=== PATIENT | female | born 1980 | race Caucasian/White ===

== ENCOUNTER 2022-12-10 11:19 | Emergency (ER) | payer OTHER, SELFPAY ==
[2022-12-10 11:28] VITALS: BP 166/100; PULSE 104; RESP 20; TEMP 36.6; O2SAT 98; BMI 47.6
--- NOTE | 2022-12-10 11:34 | ED.URI1 ---
HPI - URI/Sore Throat General Chief Complaint: Upper Respiratory Infection Stated Complaint: SORE THROAT Time Seen by Provider: 12/10/22 11:21 Source: patient Limitations: no limitations History of Present Illness HPI Narrative: 42-year-old female presents for sore throat. She's had it for two days. She's had very minimal cough. Hurts more when she swallows. She's been nauseous and had some vomiting as well. She is not complaining of chest pain and hasn't had a fever. Related Data Previous Rx's Medication Instructions Recorded ayvkhzueje-ibstbspylorzy-suvtgoly 1 cap PO Q6H PRN headache #20 caps 12/10/22 50 mg-300 mg-40 mg capsule (Fioricet) ondansetron HCl 4 mg tablet 4 mg PO Q6H PRN nausea #20 tabs 12/10/22 Allergies Allergy/AdvReac Type Severity Reaction Status Date / Time No Known Drug Allergies Allergy Verified 12/10/22 11:27 Review of Systems ROS Narrative A ten point review of systems is negative except as noted above. PFSH PFSH Social History Smoking status: Never smoker Exam Narrative Exam Narrative: Nurses note and vital signs reviewed and patient is not hypoxic. General: The patient appears well and in no apparent distress. Patient is resting comfortably on cart. Skin: Warm, dry, no pallor noted. There is no rash noted. Head: Normocephalic, atraumatic Eye: Normal conjunctiva, no drainage Ears, Nose, Mouth, and Throat: oral mucosa is moist. Nares patent. pharyngeal erythema present. No peritonsillar swelling or uvular deviation. One very small area of white exudate present on the left tonsil. Cardiovascular: Regular Rate and Rhythm Respiratory: Patient is in no distress, no accessory muscle use, lungs are clear to auscultation, no wheezing, rales or rhonchi Back: non-tender GI: soft and nontender Musculoskeletal: The patient has no evidence of calf tenderness, no pitting edema, symmetrical pulses noted bilaterally Neurological: A&O, normal speech Psychiatric: Cooperative Constitutional Vital Signs, click to edit/add: Last Vital Signs Temp 97.9 F 12/10/22 11:28 Pulse 104 H 12/10/22 11:28 Resp 20 12/10/22 11:28 BP 166/100 H 12/10/22 11:28 Pulse Ox 98 12/10/22 11:28 Course Vital Signs Vital signs: Vital Signs Temperature 97.9 F 12/10/22 11:28 Pulse Rate 104 H 12/10/22 11:28 Respiratory Rate 20 12/10/22 11:28 Blood Pressure 166/100 H 12/10/22 11:28 Pulse Oximetry 98 12/10/22 11:28 Temperature 97.9 F 12/10/22 11:28 Pulse Rate 104 H 12/10/22 11:28 Respiratory Rate 20 12/10/22 11:28 Blood Pressure 166/100 H 12/10/22 11:28 Pulse Oximetry 98 12/10/22 11:28 MDM - URI/Sore Throat MDM Narrative Medical decision making narrative: strep testing Covid test are both negative. Antibiotic is not indicated. Treatment diagnosis and follow-up were discussed with the patient. Differential Diagnosis Differential diagnosis: Likely viral infection, pharyngitis and other (Covid) Lab Data Attestation: I reviewed the patient's lab results. Labs: Lab Results 12/10/22 Range/Units 11:35 SARS-CoV-2 (PCR) Negative (NEGATIVE) Streptococcus Screen Negative Discharge Plan Discharge Chief Complaint: Upper Respiratory Infection Clinical Impression: Viral pharyngitis Patient Disposition: Home, Self-Care Time of Disposition Decision: 12:26 Condition: Good Mode of Transportation: Private Vehicle Prescriptions / Home Meds: New cqggoqliww-slcvorxcydqyv-yplr [Fioricet] 50-300-40 mg capsule 1 cap PO Q6H PRN (Reason: headache) Qty: 20 0RF ondansetron HCl 4 mg tablet 4 mg PO Q6H PRN (Reason: nausea) Qty: 20 0RF Instructions: Pharyngitis (ED) Stand Alone Forms: Portal Instructions Referrals: Sylvia Boykin [Primary Care Provider] - 1 week
[2022-12-10] MEDS: ONDANSETRON 4 MG RAPDIS TABLET SL (11:46)
[2022-12-10] MEDS: KETOROLAC TROMETHAMINE 60 MG/2 ML VIAL IM (11:46)
[2022-12-10 12:11] LABS: Internal Control Within Normal Limits; Strep A Antigen Screen Negative
[2022-12-10 12:17] LABS: SARS-CoV-2 Ag NEGATIVE (NEGATIVE)
[2022-12-10 12:40] VITALS: BP 153/95; PULSE 82; RESP 16; TEMP 36.6; O2SAT 98
[2022-12-12 16:03] LABS: SARS-CoV-2 NAA NOT DETECTED (NOT DETECTE)
== END 2022-12-10 12:48 | disposition home or self-care (01) ==
PROVIDERS: Emergency Provider Emergency Medicine; PCP Nurse Practitioner
DX: J02.9 Acute pharyngitis, unspecified (principal); Z20.822 Contact with and (suspected) exposure to COVID-19
CPT/HCPCS: 87070; 87635; 87811; 87880; 96372; 99284

== ENCOUNTER 2023-01-11 17:03 | Observation (INO) | payer OTHER, SELFPAY ==
[2023-01-11 17:07] VITALS: BP 150/108; PULSE 99; RESP 14; TEMP 36.8; O2SAT 97; BMI 47.6
--- NOTE | 2023-01-11 18:34 | PC.NURSE ---
pt presents to ED because pt states she has cellulitis pt states yesterday around noon she noticed redness to her right madden and the redness has no spread and is hot to touch. pt states she had this same thing in the same spot a year ago and had to be admitted for antibiotics. area measuring 15cm x 11cm. area marked.
--- NOTE | 2023-01-11 18:41 | ED.EXTPRO1 ---
Documented by User: STALIN Anthony 01/11/23 20:03 HPI - Extremity Problem General Chief complaint: Extremity Problem, Nontraumatic Stated complaint: LOWER EXTREMITY PAIN Time Seen by Provider: 01/11/23 17:41 Source: patient Mode of arrival: walk-in Limitations: no limitations History of Present Illness HPI Narrative: patient is a 42-year-old female who presents to the emergency department for red tender area to the right anterior madden that began last night. She has a history of cellulitis and has been admitted in the past for this. She reports subjective fever and an episode of vomiting prior to arrival. there has been no drainage from the leg. No injury or trauma. She is not concerned for . No medications taken today for pain or fever. Related Data Previous Rx's Medication Instructions Recorded wnkmbooocl-tasvufmsnlpju-gmdlebbj 1 cap PO Q6H PRN headache #20 caps 12/10/22 50 mg-300 mg-40 mg capsule (Fioricet) ondansetron HCl 4 mg tablet 4 mg PO Q6H PRN nausea #20 tabs 12/10/22 amoxicillin 875 mg-potassium 1 tab PO Q12H 14 days #28 tabs 01/12/23 clavulanate 125 mg tablet Allergies Allergy/AdvReac Type Severity Reaction Status Date / Time No Known Drug Allergies Allergy Verified 01/11/23 17:07 Review of Systems ROS Constitutional Denies: fever or chills Cardiovascular Denies: chest pain Respiratory Denies: shortness of breath or cough Gastrointestinal Reports: nausea and vomiting Integumentary/Breast Denies: rash Neurological Denies: headache Hematologic/Lymphatic Denies: easy bruising [facility] Medical History (Updated 01/16/23 @ 00:00 by ) Social History Smoking status: Never smoker Exam Narrative Exam Narrative: Gen.: Awake, alert, in no distress Head: Normocephalic, atraumatic ENT: Moist mucous membranes Respiratory: No respiratory distress Extremities: Moves extremities equally, right anterior tibia with erythematous tender rash consistent with cellulitis. No circumferential erythema, there is no redness or swelling over the right calf. No open wounds or drainage. No red streaking. Psych: Normal mood and affect Neuro: No focal neuro deficit Skin: Warm, dry, intact Constitutional Vital Signs, click to edit/add: Last Vital Signs Temp 97.5 F L 01/12/23 06:00 Pulse 72 01/12/23 08:00 Resp 16 01/12/23 08:00 BP 132/89 01/12/23 06:00 Pulse Ox 97 01/12/23 06:00 O2 Del Method Room Air 01/12/23 06:00 Course Vital Signs Vital signs: Vital Signs Temperature 98.2 F 01/11/23 17:07 Pulse Rate 99 H 01/11/23 17:07 Respiratory Rate 14 01/11/23 17:07 Blood Pressure 150/108 H 01/11/23 17:07 Pulse Oximetry 97 01/11/23 17:07 Oxygen Delivery Method Room Air 01/11/23 17:07 Temperature 97.5 F L 01/12/23 06:00 Pulse Rate 72 01/12/23 08:00 Respiratory Rate 16 01/12/23 08:00 Blood Pressure 132/89 01/12/23 06:00 Pulse Oximetry 97 01/12/23 06:00 Oxygen Delivery Method Room Air 01/12/23 06:00 MDM - Extremity (Nontraumatic) MDM Narrative Medical decision making narrative: patient treated with IV fluids, Toradol, Zofran, IV Ancef for antibiotic coverage. Lab studies show leukocytosis with no bandemia and normal lactic acid. Ultrasound was performed to rule out deep vein thrombosis. Patient is admitted for cellulitis of the right lower extremity. Vital signs are stable at time of admission to hospitalist, Dr. Domínguez for Dr. Varela (1999). Medical Records Attestation: I reviewed the patient's medical records. Lab Data Attestation: I reviewed the patient's lab results. Labs: Lab Results 01/11/23 Range/Units 18:40 WBC 17.2 H (4.0-11.0) 10^3/uL RBC 4.86 (4.20-5.40) 10^6/uL Hgb 14.0 (12.0-16.0) g/dL Hct 41.8 (36.0-48.0) % MCV 86.0 (81.0-99.0) fL MCH 28.8 (26.7-34.0) pg MCHC 33.5 (29.9-35.2) g/dL RDW 14.6 (11.0-15.0) % Plt Count 283 (150-450) 10^3/uL MPV 10.0 (9.5-13.5) fL Neut % (Auto) 86.4 H (43.0-75.0) % Lymph % (Auto) 7.1 L (20.5-60.0) % Jackson % (Auto) 5.0 (1.7-12.0) % Eos % (Auto) 0.1 L (0.9-7.0) % Baso % (Auto) 0.4 (0.2-2.0) % Neut # (Auto) 14.8 H (1.4-6.5) 10^3/uL Lymph # (Auto) 1.2 (1.2-3.8) 10^3/uL Jackson # (Auto) 0.9 H (0.3-0.8) 10^3/uL Eos # (Auto) 0.0 (0.0-0.7) 10^3/uL Baso # (Auto) 0.1 (0.0-0.1) 10^3/uL Abs Immat Gran (auto) 0.17 H (0.00-0.03) 10^3/uL Imm/Tot Granulo (auto) 1.0 H (0.0-0.5) % Sodium 138 (136-145) mmol/L Potassium 3.4 L (3.5-5.1) mmol/L Chloride 102 (98-107) mmol/L Carbon Dioxide 23.1 (21.0-32.0) mmol/L Anion Gap 16.3 BUN 11.0 (7.0-18.0) mg/dL Creatinine 0.66 (0.55-1.02) mg/dL Est GFR ( Amer) >60 (>=60) Est GFR (Non-Af Amer) >60 (>=60) BUN/Creatinine Ratio 16.7 Glucose 122 H (74-106) mg/dL Lactate 1.1 (0.4-2.0) mmol/L Calcium 9.2 (8.5-10.1) mg/dL Total Bilirubin 0.5 (0.2-1.0) mg/dL AST 27 (15-37) U/L ALT 41 (14-59) U/L Alkaline Phosphatase 91 (46-116) U/L Total Protein 8.1 (6.4-8.2) g/dL Albumin 3.8 (3.4-5.0) g/dL Globulin 4.3 g/dL Albumin/Globulin Ratio 0.9 Discharge Plan Discharge Chief Complaint: Extremity Problem, Nontraumatic Clinical Impression: Cellulitis, Leukocytosis Patient Disposition: Admitted as Observation Time of Disposition Decision: 20:02 Condition: Good Discharge Date/Time: 01/11/23 20:29 Documented by User: Mil Rowan MD 02/13/23 16:57 HPI - Extremity Problem General Chief complaint: Extremity Problem, Nontraumatic Stated complaint: LOWER EXTREMITY PAIN Time Seen by Provider: 01/11/23 17:41 Related Data Previous Rx's Medication Instructions Recorded puomxtuoul-tllxukfhgvwgg-vhfgwnuh 1 cap PO Q6H PRN headache #20 caps 12/10/22 50 mg-300 mg-40 mg capsule (Fioricet) ondansetron HCl 4 mg tablet 4 mg PO Q6H PRN nausea #20 tabs 12/10/22 amoxicillin 875 mg-potassium 1 tab PO Q12H 14 days #28 tabs 01/12/23 clavulanate 125 mg tablet Allergies Allergy/AdvReac Type Severity Reaction Status Date / Time No Known Drug Allergies Allergy Verified 01/11/23 17:07 [facility] Medical History (Updated 01/16/23 @ 00:00 by ) Social History Smoking status: Never smoker Exam Constitutional Vital Signs, click to edit/add: Last Vital Signs Temp 97.5 F L 01/12/23 06:00 Pulse 72 01/12/23 08:00 Resp 16 01/12/23 08:00 BP 132/89 01/12/23 06:00 Pulse Ox 97 01/12/23 06:00 O2 Del Method Room Air 01/12/23 06:00 Course Vital Signs Vital signs: Vital Signs Temperature 98.2 F 01/11/23 17:07 Pulse Rate 99 H 01/11/23 17:07 Respiratory Rate 14 01/11/23 17:07 Blood Pressure 150/108 H 01/11/23 17:07 Pulse Oximetry 97 01/11/23 17:07 Oxygen Delivery Method Room Air 01/11/23 17:07 Temperature 97.5 F L 01/12/23 06:00 Pulse Rate 72 01/12/23 08:00 Respiratory Rate 16 01/12/23 08:00 Blood Pressure 132/89 01/12/23 06:00 Pulse Oximetry 97 01/12/23 06:00 Oxygen Delivery Method Room Air 01/12/23 06:00 MDM - Extremity (Nontraumatic) MDM Narrative Medical decision making narrative: patient treated with IV fluids, Toradol, Zofran, IV Ancef for antibiotic coverage. Lab studies show leukocytosis with no bandemia and normal lactic acid. Ultrasound was performed to rule out deep vein thrombosis. Patient is admitted for cellulitis of the right lower extremity. Vital signs are stable at time of admission to hospitalist, Dr. Domínguez for Dr. Varela (1999). I, Dr Rowan, have reviewed the above progress note and course of action in the ER; agree with the above. I have personally seen and evaluated this patient, gone over history and physical, and discussed disposition and treatment plan with the patient. Lab Data Labs: Lab Results 01/11/23 Range/Units 18:40 WBC 17.2 H (4.0-11.0) 10^3/uL RBC 4.86 (4.20-5.40) 10^6/uL Hgb 14.0 (12.0-16.0) g/dL Hct 41.8 (36.0-48.0) % MCV 86.0 (81.0-99.0) fL MCH 28.8 (26.7-34.0) pg MCHC 33.5 (29.9-35.2) g/dL RDW 14.6 (11.0-15.0) % Plt Count 283 (150-450) 10^3/uL MPV 10.0 (9.5-13.5) fL Neut % (Auto) 86.4 H (43.0-75.0) % Lymph % (Auto) 7.1 L (20.5-60.0) % Jackson % (Auto) 5.0 (1.7-12.0) % Eos % (Auto) 0.1 L (0.9-7.0) % Baso % (Auto) 0.4 (0.2-2.0) % Neut # (Auto) 14.8 H (1.4-6.5) 10^3/uL Lymph # (Auto) 1.2 (1.2-3.8) 10^3/uL Jackson # (Auto) 0.9 H (0.3-0.8) 10^3/uL Eos # (Auto) 0.0 (0.0-0.7) 10^3/uL Baso # (Auto) 0.1 (0.0-0.1) 10^3/uL Abs Immat Gran (auto) 0.17 H (0.00-0.03) 10^3/uL Imm/Tot Granulo (auto) 1.0 H (0.0-0.5) % Sodium 138 (136-145) mmol/L Potassium 3.4 L (3.5-5.1) mmol/L Chloride 102 (98-107) mmol/L Carbon Dioxide 23.1 (21.0-32.0) mmol/L Anion Gap 16.3 BUN 11.0 (7.0-18.0) mg/dL Creatinine 0.66 (0.55-1.02) mg/dL Est GFR ( Amer) >60 (>=60) Est GFR (Non-Af Amer) >60 (>=60) BUN/Creatinine Ratio 16.7 Glucose 122 H (74-106) mg/dL Lactate 1.1 (0.4-2.0) mmol/L Calcium 9.2 (8.5-10.1) mg/dL Total Bilirubin 0.5 (0.2-1.0) mg/dL AST 27 (15-37) U/L ALT 41 (14-59) U/L Alkaline Phosphatase 91 (46-116) U/L Total Protein 8.1 (6.4-8.2) g/dL Albumin 3.8 (3.4-5.0) g/dL Globulin 4.3 g/dL Albumin/Globulin Ratio 0.9 Discharge Plan Discharge Chief Complaint: Extremity Problem, Nontraumatic Clinical Impression: Cellulitis, Leukocytosis Patient Disposition: Admitted as Observation Time of Disposition Decision: 20:02 Condition: Good Discharge Date/Time: 01/11/23 20:29
--- NOTE | 2023-01-11 18:44 | US_ITS ---
The [address] [address] Patient Name: MYRA TOBIAS MRN: [id number] date: 1980 Sex: F Assigned Patient Location: ED.MAIN Current Patient Location: ER Accession/Order Number: [id number] Exam Date: 01/11/2023 18:45 Report Date: 01/11/2023 19:53 At the request of: DUY JACOB Procedure: US venous doppler LE RT EXAM: US venous doppler LE RT HISTORY: Pain and redness in the right lower extremity for the past day. COMPARISON: None. TECHNIQUE: Multiple sonographic images of the deep veins of the right lower extremity were obtained, supplemented with Doppler. FINDINGS: The deep veins of the right lower extremity are fairly well-visualized the groin to the mid calf. No filling defect is identified to indicate a thrombus. There is normal compression augmentation to flow. US/US venous doppler LE RT IMPRESSION: There is no direct or indirect evidence of deep vein thrombosis in the right lower extremity at this time. Electronically authenticated by: UGO FUENTES Date: 01/11/2023 19:53
[2023-01-11] MEDS: KETOROLAC TROMETHAMINE 30 MG/ML VIAL IVP (18:49)
[2023-01-11] MEDS: ONDANSETRON PF 4 MG/2 ML VIAL IV (18:49)
[2023-01-11 18:57] VITALS: BP 130/82
[2023-01-11 19:05] LABS: Basophils Absolute Auto 0.1 10^3/uL (0.0-0.1); Basophils Percent Auto 0.4 % (0.2-2.0); Eosinophils Percent Auto 0.1 % (0.9-7.0); Hematocrit 41.8 % (36.0-48.0); Immature Granulocytes Abs Auto 0.17 10^3/uL (0.00-0.03); Lymphocytes Absolute Auto 1.2 10^3/uL (1.2-3.8); Lymphocytes Percent Auto 7.1 % (20.5-60.0); Mean Corpuscular HGB Conc 33.5 g/dL (29.9-35.2); Mean Corpuscular Hemoglobin 28.8 pg (26.7-34.0); Monocytes Absolute Auto 0.9 10^3/uL (0.3-0.8); Neutrophils Absolute Auto 14.8 10^3/uL (1.4-6.5); Neutrophils Percent Auto 86.4 % (43.0-75.0); Platelet Count 283 10^3/uL (150-450); Red Blood Count 4.86 10^6/uL (4.20-5.40); Red Cell Distribution Width 14.6 % (11.0-15.0); White Blood Count 17.2 10^3/uL (4.0-11.0)
[2023-01-11 19:28] LABS: Lactate/Lactic Acid 1.1 mmol/L (0.4-2.0)
[2023-01-11 19:35] LABS: Alanine Aminotransferase 41 U/L (14-59); Albumin Globulin Ratio 0.9; Albumin Level 3.8 g/dL (3.4-5.0); Alkaline Phosphatase 91 U/L (46-116); Anion Gap 16.3; Aspartate Amino Transferase 27 U/L (15-37); BUN Creatinine Ratio 16.7; Bilirubin Total 0.5 mg/dL (0.2-1.0); Calcium 9.2 mg/dL (8.5-10.1); Carbon Dioxide 23.1 mmol/L (21.0-32.0); Chloride 102 mmol/L (98-107); Estimated GFR (African America >60 (>=60); Estimated GFR (Non-African Ame >60 (>=60); Globulin 4.3 g/dL; Glucose 122 mg/dL (74-106); Potassium 3.4 mmol/L (3.5-5.1); Sodium 138 mmol/L (136-145); Total Protein 8.1 g/dL (6.4-8.2)
[2023-01-11 20:50] VITALS: BP 158/82; PULSE 78; RESP 18; TEMP 37.1; O2SAT 97; BMI 46.4
--- NOTE | 2023-01-11 22:20 | P.PN_ITS ---
Progress Note: Subjective Subjective Interval history: The patient is a 42-year-old female with a history of mild grains, who was in her usual state of health until yesterday when she started noticing redness and erythema over her right lower extremity. She has a set of wooden stairs going into her house and thinks that she could have scraped the side of her legs on that. She denies any splinters or any open wounds. She did notice some serosanguineous drainage this morning but it was not foul-smelling. She has had recurrent episodes of this in the past and the last 1 was a year ago where she needed to be admitted to the hospital during that time as well. Today, she came into the emergency room and was found to have right lower extremity cellulitis and was given IV Ancef. She is being admitted for further evaluation. Exam Narrative Exam Narrative: General : Alert and oriented x3 HEENT : Extraocular movements intact, pupils equal round and reactive to light and accommodation Neck: Supple, no JVD Chest: Clear to auscultation bilaterally, no wheezes Heart: Regular rate and rhythm, S1 and S2 heard Abdomen: Soft nontender nondistended. Extremities: No clubbing cyanosis or edema Neurologically: Moving all 4 extremities Skin: 15 to 20 cm blanching erythema of the right madden Constitutional Vital Signs, click to edit/add: Last Vital Signs Temp 98.8 F 01/11/23 20:50 Pulse 78 01/11/23 20:50 Resp 18 01/11/23 20:50 BP 158/82 H 01/11/23 20:50 Pulse Ox 97 01/11/23 20:50 O2 Del Method Room Air 01/11/23 20:50 Progress Note: Objective Labs Labs: Short CBC 01/11/23 Range/Units 18:40 WBC 17.2 H (4.0-11.0) 10^3/uL Hgb 14.0 (12.0-16.0) g/dL Hct 41.8 (36.0-48.0) % Plt Count 283 (150-450) 10^3/uL BMP 01/11/23 18:40 Sodium 138 Potassium 3.4 L Chloride 102 Carbon Dioxide 23.1 BUN 11.0 Creatinine 0.66 Glucose 122 H Calcium 9.2 Liver Function 01/11/23 Range/Units 18:40 Total Bilirubin 0.5 (0.2-1.0) mg/dL AST 27 (15-37) U/L ALT 41 (14-59) U/L Alkaline Phosphatase 91 (46-116) U/L Albumin 3.8 (3.4-5.0) g/dL Progress Note: A&P Assessment and Plan (1) Cellulitis: (2) Leukocytosis: Plan The patient is a 42-year-old female with above medical problems, presenting with right lower extremity cellulitis. Right lower extremity cellulitis -Provide supportive care -Continue IV Ancef -Elevate leg -Can probably transition to oral Keflex at discharge Migraines -Patient requesting Fioricet DVT Prophylaxis -Lovenox, SCDs Medication review -Medication reconciliation form completed Goals of care -Full code Communications -Discussed with the emergency room physician -Discussed with the bedside nurse -Patient updated of plan of care, all questions answered to their satisfaction Disposition -Home when medically stable Telemedicine clause -As the provider of this telehealth evaluation, requested by the patient's evaluating physician, I attest that I introduced myself to the patient, provided my credentials and determined that telemedicine via a real-time, two-way interactive audio and video platform is an appropriate and effective means of providing this service. -I reviewed the patient's chart and had a discussion with the member of the patient's treatment team. -The patient and I mutually agreed with continuation of this evaluation via telemedicine. The patient consented for the telemedicine evaluation. -This virtual encounter was taken place from [place], [place]. The encounter was approximately 35 minutes. The nurse was present during the entire time of the encounter and was able to remove the stethoscope and appropriate directions. The patient was evaluated at [facility] Telemedicine Attestation Telemedicine Attestation I conducted this encounter from [facility] via secure live, [id number] video conference with the patient, located at [facility] with nurse Prior to the interview, the risks and benefits of telemedicine were discussed with the patient and verbal consent was obtained.
[2023-01-11] MEDS: SODIUM CHLORIDE 0.45 % 1,000 ML 75 ML IV (23:30)
[2023-01-11] MEDS: TEMAZEPAM 15 MG CAPSULE PO (23:38)
[2023-01-11] MEDS: ACETAMINOPHEN 325 MG TABLET 650 MG PO (23:38)
[2023-01-12 04:58] LABS: Basophils Absolute Auto 0.1 10^3/uL (0.0-0.1); Basophils Percent Auto 0.8 % (0.2-2.0); Eosinophils Absolute Auto 0.2 10^3/uL (0.0-0.7); Eosinophils Percent Auto 1.6 % (0.9-7.0); Hematocrit 42.1 % (36.0-48.0); Hemoglobin 13.6 g/dL (12.0-16.0); Immature Granulocytes Abs Auto 0.17 10^3/uL (0.00-0.03); Immature Granulocytes Pct Auto 1.3 % (0.0-0.5); Lymphocytes Absolute Auto 1.9 10^3/uL (1.2-3.8); Lymphocytes Percent Auto 15.2 % (20.5-60.0); Mean Corpuscular HGB Conc 32.3 g/dL (29.9-35.2); Mean Corpuscular Hemoglobin 28.7 pg (26.7-34.0); Mean Corpuscular Volume 88.8 fL (81.0-99.0); Monocytes Percent Auto 7.9 % (1.7-12.0); Neutrophils Absolute Auto 9.3 10^3/uL (1.4-6.5); Neutrophils Percent Auto 73.2 % (43.0-75.0); Platelet Count 297 10^3/uL (150-450); Red Blood Count 4.74 10^6/uL (4.20-5.40); Red Cell Distribution Width 14.7 % (11.0-15.0); White Blood Count 12.8 10^3/uL (4.0-11.0)
[2023-01-12 05:02] LABS: Anion Gap 13.8; BUN Creatinine Ratio 20.8; Calcium 8.5 mg/dL (8.5-10.1); Carbon Dioxide 24.2 mmol/L (21.0-32.0); Chloride 105 mmol/L (98-107); Estimated GFR (African America >60 (>=60); Estimated GFR (Non-African Ame >60 (>=60); Glucose 115 mg/dL (74-106); Sodium 140 mmol/L (136-145)
[2023-01-12 05:12] LABS: Bilirubin Urine NEGATIVE (NEGATIVE); Blood Urine NEGATIVE (NEGATIVE); Clarity Urine CLEAR (CLEAR); Color Urine YELLOW (YELLOW); Glucose Urine UA NEGATIVE (NEGATIVE); Ketones Urine NEGATIVE (NEGATIVE); Leukocyte Esterase Urine NEGATIVE (NEGATIVE); Nitrite Urine NEGATIVE (NEGATIVE); Protein Urine TRACE mg/dL (NEG/TRACE); Specific Gravity Urine 1.025 (1.005-1.025)
[2023-01-12 05:17] LABS: Urine Microscopic Indicated NO
[2023-01-12 06:00] VITALS: BP 132/89; PULSE 77; RESP 18; TEMP 36.4; O2SAT 97
[2023-01-12 08:00] VITALS: PULSE 72; RESP 16
[2023-01-12] MEDS: ENOXAPARIN SODIUM 40 MG/0.4 ML SYRINGE SUBQ (09:11)
[2023-01-12] MEDS: AMPICILLIN SODIUM/SULBACTAM NA 3 GM in 0.9 % SODIUM CHLORIDE 100 ML IV (09:11)
--- NOTE | 2023-01-12 09:20 | CM.NOTE ---
Rounds made with jenny Benedict for discharge to home. No discharge needs identified. Pt will f/u with primary care doctor.
--- NOTE | 2023-01-12 09:58 | PM.HP ---
H&P: HPI History of Present Illness Chief complaint: Redness right lower leg Narrative: 42 y/o female to ER with redness to right lower leg. Reports redness to right anterior madden starting day prior. Skin red and warm to touch. Mild swelling and pain. Redness spread to larger area and painful. [place] feverish but not check temp. Nausea and vomiting x 1. History of cellulitis 1 year ago and to ER. WBC elevated but afebrile. US negative for DVT. Lactate normal. Given IV antibiotics and admitted. Continued antibiotics overnight. Much improved this am. Less pain and swelling. Redness receded and starting to fade. Afebrile and WBC improved. Review of Systems ROS Constitutional Reports: chills and fatigue; Denies: fever Cardiovascular Denies: chest pain, palpitations or edema Respiratory Denies: shortness of breath, cough or wheezing Gastrointestinal Reports: nausea and vomiting; Denies: abdominal pain or diarrhea Genitourinary Denies: painful urination [facility] Medical History (Updated 01/12/23 @ 08:19 by Phil Varela MD) Social History Smoking status: Never smoker Meds Home Medications and Allergies Home Medications Medication Instructions Recorded Confirmed Type jazlisjqla-bwngcmrzdexlr-oogrwdyr 1 cap PO Q6H PRN headache #20 caps 12/10/22 01/11/23 Rx 50 mg-300 mg-40 mg capsule (Fioricet) ondansetron HCl 4 mg tablet 4 mg PO Q6H PRN nausea #20 tabs 12/10/22 01/11/23 Rx Allergies Allergy/AdvReac Type Severity Reaction Status Date / Time No Known Drug Allergies Allergy Verified 01/11/23 17:07 Exam Constitutional Vital Signs, click to edit/add: Last Vital Signs Temp 97.5 F L 01/12/23 06:00 Pulse 72 01/12/23 08:00 Resp 16 01/12/23 08:00 BP 132/89 01/12/23 06:00 Pulse Ox 97 01/12/23 06:00 O2 Del Method Room Air 01/12/23 06:00 Documenting provider has reviewed patient's vital signs: yes Common normals: no apparent distress, oriented x3 and alert HENMT Common normals: normocephalic Eye Common normals: PERRL and EOMs intact bilaterally Respiratory Common normals: normal respiratory effort and clear to auscultation bilaterally Cardio Common normals: regular rate, regular rhythm, no gallops, no murmurs and no rub GI Common normals: Normal to inspection, nondistended, normoactive bowel sounds present and non-tender Extremity Common normals: no pedal edema Right lower extremity: lower leg (Moderate erythema right anterior madden, decreased from demarcated border) Results Labs Labs: Short CBC 01/11/23 01/12/23 Range/Units 18:40 04:24 WBC 17.2 H 12.8 H (4.0-11.0) 10^3/uL Hgb 14.0 13.6 (12.0-16.0) g/dL Hct 41.8 42.1 (36.0-48.0) % Plt Count 283 297 (150-450) 10^3/uL BMP 01/11/23 01/12/23 18:40 04:24 Sodium 138 140 Potassium 3.4 L 3.0 L Chloride 102 105 Carbon Dioxide 23.1 24.2 BUN 11.0 15.0 Creatinine 0.66 0.72 Glucose 122 H 115 H Calcium 9.2 8.5 Liver Function 01/11/23 Range/Units 18:40 Total Bilirubin 0.5 (0.2-1.0) mg/dL AST 27 (15-37) U/L ALT 41 (14-59) U/L Alkaline Phosphatase 91 (46-116) U/L Albumin 3.8 (3.4-5.0) g/dL Urine 01/12/23 Range/Units 04:00 Urine Color Yellow (YELLOW) Urine Clarity Clear (CLEAR) Urine pH 6.0 (5.0-9.0) Ur Specific [place] 1.025 (1.005-1.025) Urine Protein Trace (NEG/TRACE) mg/dL Urine Glucose (UA) Negative (NEGATIVE) mg/dL Assessment and Plan Assessment and Plan (1) Cellulitis: (2) Leukocytosis: (3) Morbid obesity: Plan Cellulitis improved with IV antibiotics. Give next dose of unasyn then discharge home. Will take augmentin x 14 days. F/u with PCP next week.
--- NOTE | 2023-01-17 10:15 | CM.DCFOLLOWU ---
Person spoke with: patient How are you feeling? well, back to work How is your pain? no pain Did you understand your discharge instructions? yes Do you have any questions about your discharge instructions? no Were you given any prescriptions at discharge? yes Were you able to get your prescriptions filled? yes Do you understand how to take your medications as ordered? yes Do you have any questions about your follow up appointment and do you plan to keep your follow up appointment? no questions, follow up is today 01/17/23 Is there anything else that you would like to discuss? no Questions/Comments/Concerns/Other:
== END 2023-01-12 11:05 | disposition home or self-care (01) ==
LOC: ER 20:36 → MS 20:45
PROVIDERS: Physician Assistant; Admitting Provider Internal Medicine; Emergency Provider Internal Medicine; PCP Nurse Practitioner; Visit Provider Family Medicine
DX: L03.115 Cellulitis of right lower limb (principal); D72.829 Elevated white blood cell count, unspecified; E66.01 Morbid (severe) obesity due to excess calories; Z68.42 Body mass index [BMI] 45.0-49.9, adult; G43.909 Migraine, unspecified, not intractable, without status migrainosus
CPT/HCPCS: 36415; 80048; 80053; 81003; 83605; 85025; 87040; 93971; 96365; 96372; 96375; 96376; 99285; G0378; Q3014

== ENCOUNTER 2024-02-03 18:18 | Emergency (ER) | payer SELFPAY ==
[2024-02-03 18:21] VITALS: BP 164/108; PULSE 106; TEMP 36.7; O2SAT 96; BMI 50.3
--- NOTE | 2024-02-03 18:39 | ED_ITS ---
HPI - Skin/Abscess/Foreign Bdy General Chief complaint: Skin/Abscess/Foreign Body Stated complaint: POSS INFECTION IN LEG Time Seen by Provider: 02/03/24 18:31 Source: patient Mode of arrival: walk-in History of Present Illness HPI narrative: This patient is here for evaluation of what she believes is an infection in her lower right leg. Yesterday she had some achiness and chills and did not feel very good and then today the distal aspect of her right tib-fib area started becoming erythematous. She has had previous soft tissue infections in that area but never had any abscesses or deep soft tissue infections. She is not known to be a diabetic. She is not currently on any antibiotics. She does not have any open wounds to the area. Does not have any pain in the ankle joint or in the knee joint. Does not have any other focus of infection. She does not have any artificial joints or prosthetic heart valves. She is otherwise healthy. Has no allergies to antibiotics Related Data Previous Rx's ?Medication ?Instructions ?Recorded ondansetron HCl 4 mg tablet 4 mg PO Q6H PRN nausea #20 tabs 12/10/22 Allergies Allergy/AdvReac Type Severity Reaction Status Date / Time No Known Drug Allergies Allergy Verified 01/11/23 17:07 [facility] Medical History (Updated 02/03/24 @ 18:42 by Juno Watts MD) Morbid obesity ?E66.01 - Morbid (severe) obesity due to excess calories (ICD-10) Viral pharyngitis ?J02.9 - Acute pharyngitis, unspecified (ICD-10) Social History Smoking status: Never smoker Exam Narrative Exam Narrative: Awake alert good historian she does not have any fever at this time. Problem focused examination shows a lower extremity to have mild erythema over the distal right tib-fib area consistent with an infectious process there is no abscesses there is no subcutaneous emphysema. Neurovascular examination is normal. There is no joint effusion or pain. There is no pain in her knee. The area is somewhat localized approximately 3 x 4 cm. Constitutional Vital Signs, click to edit/add: Last Vital Signs Temp 98.1 F 02/03/24 18:21 Pulse 106 H 02/03/24 18:21 Resp 20 02/03/24 18:21 BP 164/108 H 02/03/24 18:21 Pulse Ox 96 02/03/24 18:21 Course Vital Signs Vital signs: Vital Signs Temperature 98.1 F 02/03/24 18:21 Pulse Rate 106 H 02/03/24 18:21 Respiratory Rate 20 02/03/24 18:21 Blood Pressure 164/108 H 02/03/24 18:21 Pulse Oximetry 96 02/03/24 18:21 Temperature 98.1 F 02/03/24 18:21 Pulse Rate 106 H 02/03/24 18:21 Respiratory Rate 20 02/03/24 18:21 Blood Pressure 164/108 H 02/03/24 18:21 Pulse Oximetry 96 02/03/24 18:21 MDM - Skin/Abscess/Foreign Bdy MDM Narrative Medical decision making narrative: This patient has no history of MRSA but I believe it be appropriate to start her both on Keflex and doxycycline. She is to keep the leg elevated. She is to apply warm compresses several times a day. She is to return emergency room since she no longer has a primary care doctor if symptoms worsen or if she shows no improvement within 48 hours. Discharge Plan Discharge Stand Alone Forms: Work/School Release, Portal Instructions Chief Complaint: Skin/Abscess/Foreign Body Clinical Impression: Cellulitis Patient Disposition: Home, Self-Care Time of Disposition Decision: 18:42 Prescriptions / Home Meds: No Action ondansetron HCl 4 mg tablet 4 mg PO Q6H PRN (Reason: nausea) Qty: 20 0RF Print Language: Cuban Additional Instructions: Doxycycline/Keflex Referrals: Sylvia Boykin NP [Primary Care Provider] - 1 week
== END 2024-02-03 18:58 | disposition home or self-care (01) ==
PROVIDERS: Emergency Provider Emergency Medicine Emergency Medical Services; PCP Nurse Practitioner
DX: L03.115 Cellulitis of right lower limb (principal)
CPT/HCPCS: 99283